=== PATIENT | female | born 1985 | race Caucasian/White ===

== ENCOUNTER 2020-06-22 09:32 | Emergency (ER) | payer OTHER ==
--- NOTE | 2020-06-22 10:46 | RAD REPORT ---
EXAM DESCRIPTION: RAD - Lumbar Spine 3 Views - 06/22/2020 10:37 am CLINICAL HISTORY: back pain COMPARISON: No comparisons FINDINGS: A three-view lumbar spine examination was performed. Lumbar bodies are normal in height and alignment. No fracture or acute bony process seen. No disc spa ce narrowing. Slight narrowing at L5-S1 can be seen normally. No other significant findings. No pars defects identified. IMPRESSION: Negative Lumbar Spine examination for acute finding. Concerns for disc herniation, central canal abnormality or occult bone process can be further evaluat ed with follow-up outpatient MR lumbar spine imaging.
[2020-06-22] MEDS ORDERED: MORPHINE 2 MG/ML SYR ONE (10:53)
[2020-06-22] MEDS ORDERED: DIAZEPAM 10 MG/2 ML INJ SYRINGE ONE (10:54)
[2020-06-22] MEDS ORDERED: dexAMETHasone 10 MG/ML VIAL ONE (10:54)
[2020-06-22] MEDS ORDERED: ONDANSETRON 4 MG/2 ML VIAL ONE (10:55)
[2020-06-22 11:07] LABS: Urine Blood Trace-intact (Negative); Urine Glucose Negative (Negative); Urine Protein Negative (Negative); Urine pH 5.5 (5.0-7.0)
--- NOTE | 2020-06-22 11:59 | EDPHYS ---
Physician Documentation [facility] Name: Clementine Remy Age: 35 yrs Sex: Female : 1985 Arrival Date: 06/22/2020 Time: 09:34 Bed 13 Private MD: ED Physician Mervin Henderson HPI: 06/22 10:08 This 35 yrs old Female presents to ER via Ambulatory with complaints of jmm sciatica. 10:08 The patient presents with pain that is acute. Onset: The symptoms/episode jmm began/occurred gradually, 3 week(s) ago. Modifying factors: The patient symptoms are alleviated by remaining still, the patient symptoms are aggravated by any movement. Associated signs and symptoms: Pertinent positives: right radicular pain. The patient has experienced similar episodes in the past. This is a 35 year old female with no chronic medical conditions that presents to the ED with complaints of right lower back pain with radiation to the right lower leg. Denies bowel or bladder issues. Denies fever. . GROUP THERAPIST: 09:58 LMP N/A - Irregular menses ca1 Historical: - Allergies: 09:58 No Known Allergies; ca1 - Home Meds: 09:58 None [Active]; ca1 - PMHx: 09:58 None; ca1 - PSHx: 09:58 wrist surgery; ca1 - Immunization history:: Client reports having NOT received the Covid vaccine. Flu vaccine is not up to date. - Social history:: Smoking status: Patient reports the use of cigarette tobacco products, denies chronic smoking, but will smoke occasionally. ROS: 10:08 Constitutional: Negative for fever, chills, and weight loss, Cardiovascular: Negative jmm for chest pain, palpitations, and edema, Respiratory: Negative for shortness of breath, cough, wheezing, and pleuritic chest pain. 10:08 Back: Positive for pain with movement. 10:08 All other systems are negative. Exam: 10:08 Constitutional: This is a well developed, well nourished patient who is awake, alert, jmm and in no acute distress. Head/Face: atraumatic. Eyes: EOMI, no conjunctival erythema appreciated ENT: Moist Mucus Membranes Neck: Trachea midline, Supple Chest/axilla: Normal chest wall appearance and motion. Cardiovascular: Regular rate and rhythm. No edema appreciated Respiratory: Normal respirations, no respiratory distress appreciated Abdomen/GI: Non distended, soft 10:08 Back: pain, that is moderate, of the right flank. 10:08 Musculoskeletal/extremity: straight leg raise positive. 10:08 Neuro: extensor hallucis longus intact. 10:08 Psych: Behavior/mood is pleasant, cooperative. Vital Signs: 09:55 BP 118 / 95; Pulse 118; Resp 16; Temp 97.7(TE); Pulse Ox 100% on R/A; Weight 58.97 kg ca1 (R); Height 5 ft. 3 in. (160.02 cm) (R); Pain 8/10; 11:20 BP 113 / 69; Pulse 60; Resp 18; Pulse Ox 100% ; tr6 09:55 Body Mass Index 23.03 (58.97 kg, 160.02 cm) ca1 MDM: 10:08 [facility] 11:56 Data reviewed: vital signs, nurses notes. Counseling: I had a detailed discussion with bebe the patient and/or guardian regarding: the historical points, exam findings, and any diagnostic results supporting the discharge/admit diagnosis, radiology results, the need for outpatient follow up, to return to the emergency department if symptoms worsen or persist or if there are any questions or concerns that arise at home. ED course: Pain relieved in the ED. I do not suspect cauda equina. Patient advised to follow up with pcp and otherwise given strict return precautions. patient understood and agrees with the plan of care. . 06/22 11:07 Order name: Urine Dipstick-Ancillary; Complete Time: 11:07 EDAK 06/22 11:09 Order name: Urine --Ancillary (enter results) em1 06/22 10:12 Order name: Lumbar Spine (3 Views) XRAY; Complete Time: 10:48 [facility] 06/22 10:09 Order name: Saline Lock; Complete Time: 10:36 [facility] Administered Medications: 11:19 Drug: morphine 2 mg Route: IVP; Site: right antecubital; tr6 12:24 Follow up: Response: No adverse reaction; Pain is decreased tr6 11:19 Drug: Zofran (Ondansetron) 4 mg Route: IVP; Site: right antecubital; tr6 12:24 Follow up: Response: No adverse reaction; Pain is decreased tr6 11:19 Not Given (Patient Refused; MD aware): Valium (diazepam) 2 mg IVP once tr6 11:19 Drug: Decadron - Dexamethasone 10 mg Route: IVP; Site: right antecubital; tr6 12:24 Follow up: Response: No adverse reaction; Pain is decreased tr6 Disposition: 06/22/20 11:58 Discharged to Home. Impression: Sciatica, right side. - Condition is Stable. - Discharge Instructions: Sciatica, Back Exercises. - Prescriptions for Ultracet 37.5- 325 mg Oral Tablet - take 1 tablet by ORAL route every 6 hours - for up to 5 days; do not exceed 8 tablets per day.; 12 tablet. Zanaflex 4 mg Oral Tablet - take 1 tablet by ORAL route every 8 hours As needed; 20 tablet. - Medication Reconciliation Form, Thank You Letter, Antibiotic Education, Prescription Opioid Use form. - Follow up: Private Physician; When: 2 - 3 days; Reason: Recheck today's complaints, Continuance of care, Re-evaluation by your physician. Addendum: 06/23/2020 18:26 Co-signature as Attending Physician, Mervin Henderson MD. m a2 Signatures: Dispatcher [employer] EDMS Jean Carlos Blackburn PA PA jmm Alzahri, Mohammad, MD MD ma2 Toshia Hodge RN RN Rayna Bassett RN RN tr6 Corrections: (The following items were deleted from the chart) 06/22 12:31 11:58 06/22/2020 11:58 Discharged to Home. Impression: Sciatica, right side. Condition tr6 is Stable. Forms are Medication Reconciliation Form, Thank You Letter, Antibiotic Education, Prescription Opioid Use. Follow up: Private Physician; When: 2 - 3 days; Reason: Recheck today's complaints, Continuance of care, Re-evaluation by your physician. barbara
--- NOTE | 2020-06-22 11:59 | ER ---
Nurse's Notes [facility] Name: Clementine Remy Age: 35 yrs Sex: Female : 1985 Arrival Date: 06/22/2020 Time: 09:34 Bed 13 Private MD: Diagnosis: Sciatica, right side Presentation: 06/22 09:55 Chief complaint: Patient states: I have a sciatic flare up, since 3 weeks ago. It ca1 usually lasts 4 days. It's unbearable now, I tried chiropractor, massage, not much relief and it's gotten worse last few days. C/O R buttocks pain radiating down to R back of thigh, down to back of R knee. Coronavirus screen: Client denies travel out of the [place] in the last 14 days. At this time, the client does not indicate any symptoms associated with coronavirus-19. Ebola Screen: Patient negative for fever greater than or equal to 101.5 degrees Fahrenheit, and additional compatible Ebola Virus Disease symptoms Patient denies exposure to infectious person. Patient denies travel to an Ebola-affected area in the 21 days before illness onset. No symptoms or risks identified at this time. Initial Sepsis Screen: Does the patient meet any 2 criteria? No. Patient's initial sepsis screen is negative. Does the patient have a suspected source of infection? No. Patient's initial sepsis screen is negative. Risk Assessment: Do you want to hurt yourself or someone else? Patient reports no desire to harm self or others. Onset of symptoms was June 22, 2020. 09:55 Method Of Arrival: Ambulatory ca1 09:55 Acuity: MIKE 4 ca1 PAY PER CLICK STRATEGIST: 09:58 LMP N/A - Irregular menses ca1 Historical: - Allergies: 09:58 No Known Allergies; ca1 - Home Meds: 09:58 None [Active]; ca1 - PMHx: 09:58 None; ca1 - PSHx: 09:58 wrist surgery; ca1 - Immunization history:: Client reports having NOT received the Covid vaccine. Flu vaccine is not up to date. - Social history:: Smoking status: Patient reports the use of cigarette tobacco products, denies chronic smoking, but will smoke occasionally. Screenin:29 Abuse screen: Denies threats or abuse. Denies injuries from another. Nutritional tr6 screening: No deficits noted. Tuberculosis screening: No symptoms or risk factors identified. Fall Risk None identified. Assessment: 12:25 General: Appears in no apparent distress. comfortable, well groomed, Behavior is calm, tr6 cooperative, appropriate for age. Pain: Complains of pain in pt c/o right sided sciatica pain radiating down right leg to knee. Neuro: No deficits noted. Cardiovascular: No deficits noted. Respiratory: No deficits noted. GI: No deficits noted. : No deficits noted. EENT: No deficits noted. Derm: No deficits noted. Musculoskeletal: Reports limited movement in right leg due to pain. 12:26 Reassessment: pt reports that pain has improved after meds given. pt reports she is tr6 ready for discharge. Vital Signs: 09:55 BP 118 / 95; Pulse 118; Resp 16; Temp 97.7(TE); Pulse Ox 100% on R/A; Weight 58.97 kg ca1 (R); Height 5 ft. 3 in. (160.02 cm) (R); Pain 8/10; 11:20 BP 113 / 69; Pulse 60; Resp 18; Pulse Ox 100% ; tr6 09:55 Body Mass Index 23.03 (58.97 kg, 160.02 cm) ca1 ED Course: 09:34 Patient arrived in ED. as 09:57 Triage completed. ca1 09:58 Jean Carlos Blackburn PA is PHCP. jmm 09:58 Arm band placed on right wrist. ca1 09:59 Mervin Henderson MD is Attending Physician. jmm 10:26 Rayna Franklin, NU is Primary Nurse. tr6 10:38 Lumbar Spine (3 Views) XRAY In Process Unspecified. EDMS 11:19 Urine --Ancillary (enter results) Sent. tr6 11:20 Patient has correct armband on for positive identification. Bed in low position. Call tr6 light in reach. Side rails up X2. 11:20 Inserted saline lock: 20 gauge in right antecubital area, using aseptic technique. tr6 12:29 No provider procedures requiring assistance completed. tr6 12:30 IV discontinued, intact, bleeding controlled, No redness/swelling at site. Pressure tr6 dressing applied. Administered Medications: 11:19 Drug: morphine 2 mg Route: IVP; Site: right antecubital; tr6 12:24 Follow up: Response: No adverse reaction; Pain is decreased tr6 11:19 Drug: Zofran (Ondansetron) 4 mg Route: IVP; Site: right antecubital; tr6 12:24 Follow up: Response: No adverse reaction; Pain is decreased tr6 11:19 Not Given (Patient Refused; MD aware): Valium (diazepam) 2 mg IVP once tr6 11:19 Drug: Decadron - Dexamethasone 10 mg Route: IVP; Site: right antecubital; tr6 12:24 Follow up: Response: No adverse reaction; Pain is decreased tr6 Outcome: 11:58 Discharge ordered by MD. jimenez 12:29 Discharged to home ambulatory, with family, pts is to pick her up tr6 12:29 Condition: improved 12:29 Discharge instructions given to patient, Instructed on discharge instructions, follow up and referral plans. medication usage, Demonstrated understanding of instructions, medications, Prescriptions given X 2. 12:31 Patient left the ED. tr6 Signatures: Dispatcher [employer] EDMS Jean Carlos Blackburn PA PA jmm Martinez, Amelia as Acob, Cheryl RN RN ca1 Rayna Franklin RN RN tr6 Corrections: (The following items were deleted from the chart) 10:00 09:55 Chief complaint: Patient states: I have a sciatic flare up, since 3 weeks ago. It ca1 usually lasts 4 days. It's unbearable now, I tried chiropractor, massage, not much relief and it's gotten worse last few days ca1
[2020-06-22 12:54] VITALS: TEMP 97.7; O2SAT 100
[2020-06-22 12:59] VITALS: BP 113/69
== END 2020-06-22 12:31 | disposition home or self-care (01) ==
LOC: ER 09:32
DX: M54.31 Sciatica, right side (principal); F17.210 Nicotine dependence, cigarettes, uncomplicated
CPT/HCPCS: 81025; 81003; 72100; 96375; 96374; 99284; J3360; J1100; J2270; J2405